=== PATIENT | male | born 1975 | race Caucasian/White ===

== ENCOUNTER 2024-07-15 20:10 | Emergency (ER) | payer OTHER, SELFPAY ==
--- NOTE | ~2024-07-15 | CT_ITS ---
EXAMINATION: CT ABDOMEN AND PELVIS WITH CONTRAST CLINICAL INFORMATION: Abdominal pain. . SBO . Cannot tolerate oral contrast. COMPARISON: None available. TECHNIQUE: Multidetector volumetric images were obtained from the superior aspect of the liver through the pubic symphysis following administration 85 mL of Omnipaque 350 intravenous contrast. Sagittal and coronal reformatted images were obtained on the technologist's workstation. Oral contrast: No This CT examination was performed using dose optimization techniques as appropriate, variously including the following: *Automated exposure control *Adjustment of mA and/or kV according to patient size (this includes techniques or standardized protocols for targeted exams where dose is matched to indication/reason for exam; i.e. extremities or head) *Use of iterative reconstruction technique DLP: 1366 mGy-cm FINDINGS: LUNG BASES: The lung bases are clear. The heart size is normal. LIVER, GALLBLADDER, AND BILIARY TREE: The liver is normal in size, shape, and attenuation. No focal hepatic lesion or biliary ductal dilatation is present. The gallbladder is unremarkable with no evidence of radiopaque gallstones, gallbladder wall thickening, or obvious pericholecystic inflammatory changes. PANCREAS: Unremarkable. SPLEEN: Spleen is normal size with a calcified ring lesion likely cyst or granuloma. ADRENAL GLANDS: Unremarkable. KIDNEYS AND URETERS: The kidneys are normal in size, shape, and attenuation. No hydronephrosis, hydroureter, or calculi seen. No perinephric stranding. There is a 5 cm cyst mid pole left kidney measuring -20 months limits likely a benign cyst. No additional lesions seen on either side. BLADDER: Unremarkable. GASTROINTESTINAL TRACT: There is scattered stool and gas in colon without distention. The small bowel loops are normal caliber. Appendix is not visualized. ABDOMINAL WALL: There is a small umbilical hernia containing fat. LYMPH NODES: Normal. VASCULAR: Unremarkable. PELVIC VISCERA: Unremarkable. OSSEOUS STRUCTURES: No aggressive lytic or sclerotic process seen. There is mild degenerative disc changes L1-2 to L4-[address]/CT abdomen pelvis w IV con IMPRESSION: No acute intra-abdominal process seen. Simple left renal benign cyst. No further workup needed . Left paraumbilical hernia containing fat. Likely calcified splenic cyst Fleischner guidelines were followed. Electronically signed by: Wood Leach MD 07/15/2024 10:40 PM EDT
--- NOTE | 2024-07-15 20:15 | ED_ITS ---
HPI - Abdominal Pain General Chief Complaint: Abdominal Pain Stated Complaint: abd pain Time Seen by Provider: 07/15/24 20:26 Source: patient Limitations: language barrier History of Present Illness ED Provider: Irma Martínez PA-C HPI narrative: 49-year-old morbidly obese male presents with severe abdominal pain. Pain is diffuse, severe, patient unable to describe the nature of his discomfort. Associated abdominal distention, and active nausea vomiting. Denies constipation, urinary retention or inability to pass flatus. Patient has not had prior abdominal surgeries. No fevers. Related Data Previous Rx's ?Medication ?Instructions ?Recorded dicyclomine 20 mg tablet 20 mg PO TID PRN abdominal pain 07/15/24 #10 tabs ondansetron HCl 8 mg tablet 8 mg PO Q8H #9 tabs 07/15/24 sucralfate 1 gram tablet (Carafate) 1 g PO TID PRN nausea and vomiting 07/15/24 #15 tabs Allergies Allergy/AdvReac Type Severity Reaction Status Date / Time No Known Allergies Allergy Verified 07/15/24 20:25 Review of Systems Review of Systems Yes all other systems are reviewed and are negative Constitutional: Denies fatigue and Denies fever(s) Cardiovascular: Denies chest pain and Denies dyspnea Respiratory: Denies dyspnea Gastrointestinal: Reports abdominal pain, Denies constipation, Denies diarrhea, Reports nausea and Reports vomiting Endocrine: Denies fatigue PMFSH Past Medical History Attestation statement: The following information was validated with the patient. Social History Social History Smoked in Last 30 Days: No Use of substances other than those prescribed or required for medical reasons: No Advance Directives: No Advance Directives Information Provided: No Do you have a plan to hurt others: No Plan Physical Exam ED Vital Signs: Vital Signs - 24 hr 07/15/24 20:23 07/15/24 22:25 Temperature 98.4 F Pulse Rate 57 80 Respiratory Rate 20 16 Blood Pressure 131/61 122/70 Pulse Oximetry 100 98 Oxygen Delivery Method Room Air Room Air BMI result Body Mass Index 48.3 Const Other: Alert, appears older than stated age, is extremely uncomfortable, unable to sit still on the bed, yelling in the exam room Orientation/consciousness: patient oriented x3 Resp Effort & Inspection: normal respiratory effort Cardio Other: Normal peripheral perfusion GI Other: Abdomen is distended, not tympanic, obese, generalized tenderness to palpation, difficult to discern guarding secondary to habitus Skin Other: Warm dry no rash Neuro General: patient oriented x3, no focal motor deficits and CN's II-XI intact bilaterally Psych Other: Hostile, belligerent, cursing at me in Malawian Procedures Procedure Narrative Procedure Narrative: Ultrasound-guided IV 18 gauge 3-1/4 inch IV placed in left upper extremity. Adequate blood return, line flushes well, secured with Tegaderm Course Course Course Narrative: This is a Rapid Medical Exam performed in triage by Albertina Mack PA-C. Full HPI, ROS and PE to be performed by primary ED provider. 49 yo male presenting to the ED c/o lower abdominal pain since 5PM w/nausea and vomiting and voiding in small amounts. Denies constipation, diarrhea, fever PE: Diaphoretic, dry heaving/vomiting, abdomen soft with diffuse tenderness Plan: EKG, labs, UA, CT Medical Decision Making Medical Decision Making MDM Narrative: 49-year-old morbidly obese male presents with severe abdominal pain. Pain is diffuse, severe, patient unable to describe the nature of his discomfort. Associated abdominal distention, and active nausea vomiting. Denies constipation, urinary retention or inability to pass flatus. Patient has not had prior abdominal surgeries. No fevers. Problem: Morbid obesity History: Per patient I have considered the following differential diagnoses: Bowel obstruction, gastritis, cholecystitis, appendicitis, diverticulitis, renal colic Plan: Secondary to patient's habitus, his exam was overall non focal, difficult to localize his pain. Given distention, I am considering obstruction, however he has not had prior surgical history, and he does not have obstructive symptoms. We will be obtaining a CT scan, giving Dilaudid, Zofran and IV fluid. To note, the patient is assessment began from [facility], screening labs were ordered by yet to be obtained. I will need to place an ultrasound-guided IV. I have independently reviewed the following tests: Labs: No overall leukocytosis, however left shift noted, not anemic, no electrolyte abnormality, AST and ALT subtly elevated CT abdomen and pelvis:CT ABDOMEN AND PELVIS WITH CONTRAST CLINICAL INFORMATION: Abdominal pain. . SBO . Cannot tolerate oral contrast. COMPARISON: None available. TECHNIQUE: Multidetector volumetric images were obtained from the superior aspect of the liver through the pubic symphysis following administration 85 mL of Omnipaque 350 intravenous contrast. Sagittal and coronal reformatted images were obtained on the technologist's workstation. Oral contrast: No This CT examination was performed using dose optimization techniques as appropriate, variously including the following: *Automated exposure control *Adjustment of mA and/or kV according to patient size (this includes techniques or standardized protocols for targeted exams where dose is matched to indication/reason for exam; i.e. extremities or head) *Use of iterative reconstruction technique DLP: 1366 mGy-cm FINDINGS: LUNG BASES: The lung bases are clear. The heart size is normal. LIVER, GALLBLADDER, AND BILIARY TREE: The liver is normal in size, shape, and attenuation. No focal hepatic lesion or biliary ductal dilatation is present. The gallbladder is unremarkable with no evidence of radiopaque gallstones, gallbladder wall thickening, or obvious pericholecystic inflammatory changes. PANCREAS: Unremarkable. SPLEEN: Spleen is normal size with a calcified ring lesion likely cyst or granuloma. ADRENAL GLANDS: Unremarkable. KIDNEYS AND URETERS: The kidneys are normal in size, shape, and attenuation. No hydronephrosis, hydroureter, or calculi seen. No perinephric stranding. There is a 5 cm cyst mid pole left kidney measuring -20 months limits likely a benign cyst. No additional lesions seen on either side. BLADDER: Unremarkable. GASTROINTESTINAL TRACT: There is scattered stool and gas in colon without distention. The small bowel loops are normal caliber. Appendix is not visualized. ABDOMINAL WALL: There is a small umbilical hernia containing fat. LYMPH NODES: Normal. VASCULAR: Unremarkable. PELVIC VISCERA: Unremarkable. OSSEOUS STRUCTURES: No aggressive lytic or sclerotic process seen. There is mild degenerative disc changes L1-2 to L4-[address]/CT abdomen pelvis w IV con IMPRESSION: No acute intra-abdominal process seen. Simple left renal benign cyst. No further workup needed . Left paraumbilical hernia containing fat. Likely calcified splenic cyst Fleischner guidelines were followed. Electronically signed by: Wood Leach MD 07/15/2024 10:40 PM EDT Reviewed results with the patient that his scan was negative. I discussed that he likely is developing viral gastroenteritis given the acute onset nausea vomiting, and he is having tenesmus. I told him he can expect he may develop further diarrhea. He states that he often has loose stools at home. Lab Data 07/15/24 20:51 07/15/24 20:51 Labs: Lab Results 07/15/24 Range/Units 20:51 WBC 9.6 (4.8-10.8) X10*3/uL RBC 4.59 L (4.60-5.80) X10*6/uL Hgb 13.8 L (14.0-18.0) g/dl Hct 38.7 L (42.0-52.0) % MCV 84.3 (80.0-98.0) fL MCH 30.1 (27.0-33.0) pg MCHC 35.7 (31.0-36.0) g/dl RDW 13.7 (11.0-16.0) % Plt Count 184 (160-400) X10*3/uL MPV 9.6 (9.4-12.4) fL Immature Gran % (Auto) 0.3 (0.0-0.4) % Neut % (Auto) 75.8 H (45-73) % Lymph % (Auto) 16.1 L (20-40) % [place] % (Auto) 5.3 (2-11) % Eos % (Auto) 2.2 (0-4) % Baso % (Auto) 0.3 (0-2) % Lymph # (Auto) 1.6 (1.2-4.9) X10*3/uL [place] # (Auto) 0.5 (0.1-1.2) X10*3/uL Eos # (Auto) 0.2 (0.0-0.4) X10*3/uL Baso # (Auto) 0.0 (0.0-0.2) X10*3/uL Abs Immat Gran (auto) 0.03 (0.00-0.03) X10*3/uL Absolute Neuts (auto) 7.3 (2.0-8.3) x10*3/uL Absolute Nucleated RBC 0.000 (0.0-0.012) X10*3/uL Nucleated RBC % (auto) 0.0 (0.0-0.2) /100WBC Sodium 142 (135-145) mmol/L Potassium 3.9 (3.3-5.1) mmol/L Chloride 109 H (96-108) mmol/L Carbon Dioxide 20 L (22-29) mmol/L Anion Gap 17 (12-20) BUN 17 H (9-16) mg/dL Creatinine 1.17 (0.5-1.4) mg/dL Estim Creat Clear Calc 94.5 Estimated GFR > 60 Random Glucose 176 H (60-115) mg/dL Calcium 9.8 (8.4-10.2) mg/dL Magnesium 1.9 (1.6-2.6) mg/dL Total Bilirubin 0.6 (0.0-1.0) mg/dL Direct Bilirubin 0.2 (0.0-0.5) mg/dL AST 42 H (5-37) U/L ALT 54 H (0-40) U/L Alkaline Phosphatase 65 (39-117) U/L Total Protein 7.8 (6.5-8.0) g/dL Albumin 4.6 (3.5-5.0) g/dL Lipase 16 (8-78) U/L Medications Administered Discontinued Medications Generic Name Dose Route Start Last Admin Trade Name Freq PRN Reason Stop Dose Admin Droperidol 2.5 mg 07/15/24 21:21 07/15/24 21:24 Droperidol 5 Mg/2 Ml Vial IVPUSH 07/15/24 21:22 2.5 mg ONCE ONE Administration Hydromorphone HCl 1 mg 07/15/24 20:37 07/15/24 20:53 Hydromorphone Hcl 1 Mg/Ml Syringe IVPUSH 07/15/24 20:38 1 mg ONCE ONE Administration Protocol Sodium Chloride 1,000 mls @ 999 mls/hr 07/15/24 20:30 07/15/24 20:56 Ns IV 07/15/24 21:30 Not Given .Q1H1M HOWARD Sodium Chloride 1,000 mls @ 999 mls/hr 07/15/24 20:45 07/15/24 22:10 Ns IV 07/15/24 21:45 Infused .Q1H1M HOWARD Infusion Iohexol 85 ml 07/15/24 22:03 07/15/24 22:04 Iohexol 350 Mg/Ml 100 Ml Infus..Btl IV 07/15/24 22:04 85 ml ONCE ONE Administration Ondansetron HCl 4 mg 07/15/24 20:21 07/15/24 20:53 Ondansetron Hcl 4 Mg/2 Ml Vial IVPUSH 07/15/24 20:22 4 mg ONCE ONE Administration Discharge Plan Discharge Clinical Impression: Viral gastroenteritis Patient Disposition: Home, Self-Care Instructions: Acute Nausea and Vomiting (ED), Enteritis (ED) Additional Instructions: All of your labs were normal. The CT scan was negative for any acute process. You likely have viral gastroenteritis. See home care instructions. Use the Zofran as needed for nausea. Use the Carafate as needed for acid reflux and/or vomiting. You take it before you eat. Use the Bentyl as needed for abdominal pain. Follow up with your primary care provider as needed. Prescriptions: New sucralfate [Carafate] 1 gram tablet 1 g PO TID PRN (Reason: nausea and vomiting) Qty: 15 0RF ondansetron HCl 8 mg tablet 8 mg PO Q8H Qty: 9 0RF dicyclomine 20 mg tablet 20 mg PO TID PRN (Reason: abdominal pain) Qty: 10 0RF Print Language: Malawian
--- NOTE | 2024-07-15 20:21 | ECG_ITS ---
Test Reason : ABD PAIN Blood Pressure : / mmHG Vent. Rate : 056 BPM Atrial Rate : 056 BPM P-R Int : 196 ms QRS Dur : 092 ms QT Int : 452 ms P-R-T Axes : 050 049 048 degrees QTc Int : 436 ms Sinus bradycardia Otherwise normal ECG No previous ECGs available Referred By: Albertina Mack Electronically Signed By:NICOLA MARADIAGA
[2024-07-15 20:23] VITALS: BP 131/61; PULSE 57; RESP 20; O2SAT 100; BMI 48.3
[2024-07-15] MEDS: HYDROmorphone HCl 1 MG/ML SYRINGE IVPUSH ×2 (20:53→23:01)
[2024-07-15] MEDS: ondansetron HCL 4 MG/2 ML VIAL IVPUSH (20:53)
[2024-07-15 20:56] LABS: MANUAL DIFF FLAG NO
[2024-07-15] MEDS: 0.9 % Sodium Chloride 1,000 ML 999 ML IV (20:56)
[2024-07-15 21:02] LABS: Basophils Percent Auto 0.3 % (0-2); Eosinophils Absolute Auto 0.2 X10*3/uL (0.0-0.4); Eosinophils Percent Auto 2.2 % (0-4); Hematocrit 38.7 % (42.0-52.0); Hemoglobin 13.8 g/dl (14.0-18.0); Imm Gran Abs Auto 0.03 X10*3/uL (0.00-0.03); Imm Gran Pct Auto 0.3 % (0.0-0.4); Lymphocytes Absolute Auto 1.6 X10*3/uL (1.2-4.9); Lymphocytes Percent Auto 16.1 % (20-40); Mean Corpuscular HGB Conc 35.7 g/dl (31.0-36.0); Mean Corpuscular Hemoglobin 30.1 pg (27.0-33.0); Mean Corpuscular Volume 84.3 fL (80.0-98.0); Mean Platelet Volume 9.6 fL (9.4-12.4); Monocytes Absolute Auto 0.5 X10*3/uL (0.1-1.2); Monocytes Percent Auto 5.3 % (2-11); Neutrophils Absolute Auto 7.3 x10*3/uL (2.0-8.3); Neutrophils Percent Auto 75.8 % (45-73); Platelet Count 184 X10*3/uL (160-400); Red Blood Count 4.59 X10*6/uL (4.60-5.80); Red Cell Distribution Width 13.7 % (11.0-16.0); White Blood Count 9.6 X10*3/uL (4.8-10.8)
[2024-07-15 21:16] LABS: Alanine Aminotransferase 54 U/L (0-40); Albumin Level 4.6 g/dL (3.5-5.0); Alkaline Phosphatase 65 U/L (39-117); Anion Gap 17 (12-20); Aspartate Amino Transferase 42 U/L (5-37); Bilirubin Direct 0.2 mg/dL (0.0-0.5); Bilirubin Total 0.6 mg/dL (0.0-1.0); Blood Urea Nitrogen 17 mg/dL (9-16); Calcium 9.8 mg/dL (8.4-10.2); Carbon Dioxide 20 mmol/L (22-29); Chloride 109 mmol/L (96-108); Creatinine Clr Calc Pharmacy 94.5; Estimated Glomerular Filt Rate > 60; Glucose Random 176 mg/dL (60-115); Lipase 16 U/L (8-78); Magnesium 1.9 mg/dL (1.6-2.6); Potassium 3.9 mmol/L (3.3-5.1); Sodium 142 mmol/L (135-145); Total Protein 7.8 g/dL (6.5-8.0)
[2024-07-15] MEDS: droPERidol 5 MG/2 ML VIAL 2.5 MG IVPUSH (21:24)
--- NOTE | 2024-07-15 21:32 | PC.NURSE ---
pt to ed7 from vomiting/reporting 10/10 abd pain. 2x attempt at iv unable to establish. u/s iv to L. upper arm by provider. ivf infusing, pt medicated per mar. pain not improved with med per mar and pt vomiting. provider made aware. droperidol given per mar. pt is axox4 kiswahili speaking ambulates with steady gait. at bedside. awaiting abd ct scan. call hathaway within reach.
[2024-07-15] MEDS: iohexoL 350 MG/ML 100 ML INFUS..BTL 85 ML IV (22:04)
[2024-07-15 22:25] VITALS: BP 122/70; PULSE 80; RESP 16; TEMP 36.9; O2SAT 98
[2024-07-15 23:45] VITALS: BP 122/70; PULSE 80; RESP 16; TEMP 36.9; O2SAT 98
== END 2024-07-15 23:45 | disposition home or self-care (01) ==
PROVIDERS: Physician Assistant; Emergency Provider Internal Medicine
DX: A08.4 Viral intestinal infection, unspecified (principal); R10.30 Lower abdominal pain, unspecified; R11.2 Nausea with vomiting, unspecified; E66.01 Morbid (severe) obesity due to excess calories; Z68.42 Body mass index [BMI] 45.0-49.9, adult; Z79.899 Other long term (current) drug therapy
CPT/HCPCS: 36415; 36573; 74177; 80048; 80076; 83690; 83735; 85025; 93005; 96361; 96374; 96375; 96376; 99284; 99285; J1170; J1790; J2405; Q9967